=== PATIENT | female | born 1940 | race Caucasian/White ===

== ENCOUNTER → 2016-12-05 | Outpatient (CLI) | payer OTHER ==
[~2016-12-05] MED LIST: IOPAMIDOL (ISOVUE-300) 100 ML BTL IV ONE
[2016-12-05 16:00] LABS: CREATININE 0.9 mg/dL (0.6-1.0); GLOMERULAR FILTRATION RATE > 60
--- NOTE | 2016-12-05 16:56 | CT ---
CT Abdomen and Pelvis (Without and With Contrast) CT Urogram 1611 hours History microscopic hematuria for one year without pain.. Technique: Spiral images were obtained through the abdomen and pelvis without contrast for renal ston e evaluation. 100 mL of Isovue-300 IV contrast were administered and spiral images were obtained thro ugh the abdomen. After a 12-minute delay, spiral imaging was obtained through the abdomen and pelvis. Images were reconstructed in multiple planes for CT urogram imaging. An AP scanogram director of employee development image was also obtained over the abdomen and pelvis after axial imaging was acquired. Dose reduction technique s were utilized. Findings: On the noncontrast images, there is no evidence of calculus projected over the kidneys or a long the expected path of the ureters. No bladder calculus is seen, as well. With IV contrast administration, there is good uptake and excretion of contrast by the kidneys. No fi lling defects are seen within the collecting system on either side with normal contour to the renal c ollecting structures, as well as the ureters. The bladder has a normal contour. No bladder lesion is seen. Liver: Normal. Spleen: Normal. Gallbladder and Bile Ducts: Normal. Pancreas: Normal. Adrenals: Normal. Abdominal Aorta: There is moderate atherosclerotic calcification of the abdominal aorta without evide nce of aneurysm or dissection. There is a single renal artery seen to each kidney with some scattered calcified plaques but no significant stenosis. Pelvic structures: The uterus has a normal contour. No adnexal masses are seen. Bladder: Normal . Appendix: Normal. Bowel Loops: Normal. No bowel obstruction, ascites, or significant retroperitoneal lymphadenopathy. Skeletal system: Vertebral body heights are well-maintained. There are no lytic or sclerotic osseous lesions appreciated. Degenerative disk disease is noted throughout the lumbar spine with underlying spinal stenosis suspected at L2-L3 and L3-L4 secondary to disk bulge along with ligamentum flavum hyp ertrophy and facet hypertrophy. There is also calcification of the tendinous insertion along the isch ium bilaterally related to hamstrings. Impression: 1. Normal CT urogram. No underlying renal or ureteral lesions are seen as well as normal contour to t he bladder. 2. Degenerative disk disease involving the lumbar spine with underlying spinal stenosis suspected at L2-L3 and L3-L4. 3. 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
== END ==
LOC: FIMAGING 15:00
PROVIDERS: ATTEND Urology
DX: R31.29 Other microscopic hematuria (principal); M51.36 Other intervertebral disc degeneration, lumbar region; M65.251 Calcific tendinitis, right thigh; M65.252 Calcific tendinitis, left thigh
CPT/HCPCS: 74178; Q9967

== ENCOUNTER → 2016-12-26 | Outpatient (CLI) | payer OTHER | LOC: FIMAGING 09:13 | DX: Z12.31 Encounter for screening mammogram for malignant neoplasm of breast (principal) | CPT/HCPCS: G0202 ==

== ENCOUNTER → 2018-02-05 | Outpatient (CLI) | payer OTHER | LOC: FIMAGING 08:02 | PROVIDERS: ATTEND Internal Medicine | DX: R07.89 Other chest pain (principal); R53.83 Other fatigue; Z95.5 Presence of coronary angioplasty implant and graft ==

== ENCOUNTER → 2018-07-07 | Outpatient (CLI) | payer OTHER | LOC: FIMAGING 08:56 | PROVIDERS: ATTEND Psychiatry & Neurology Neurology | DX: R41.3 Other amnesia (principal); G31.9 Degenerative disease of nervous system, unspecified; R90.82 White matter disease, unspecified ==

== ENCOUNTER → 2018-07-31 | Outpatient (CLI) | payer OTHER ==
--- NOTE | 2018-07-31 10:41 | CPEEG ---
DATE OF STUDY: 07/31/2018 INTERPRETATION: Normal EEG during wakefulness and sleep. There were no potentially epileptogenic ab normalities present during the recording. REPORT: This EEG contains 10 Hz alpha activity to the posterior head regions. There was no abnormal activation at rest, during photic stimulation or hyperventilation. The patient became drowsy and fe ll asleep during the recording. There was no abnormal activation during drowsiness, sleep, or during times of arousal. /[id number]/MODL
== END ==
LOC: FCPNEURO 08:01
PROVIDERS: ATTEND Psychiatry & Neurology Neurology
DX: R41.3 Other amnesia (principal)

== ENCOUNTER → 2018-08-29 | Outpatient (CLI) | payer OTHER | LOC: BMCIMAGING 15:22 | PROVIDERS: ATTEND Internal Medicine | DX: R09.02 Hypoxemia (principal); I70.0 Atherosclerosis of aorta ==

== ENCOUNTER → 2019-03-01 | Outpatient (CLI) | payer OTHER | LOC: FIMAGING 10:03 | PROVIDERS: ATTEND Internal Medicine | DX: Z12.31 Encounter for screening mammogram for malignant neoplasm of breast (principal) ==